=== PATIENT | male | born 1980 | race Two or more races ===

== ENCOUNTER 2021-08-15 16:29 | Inpatient (IN) | payer MEDICAID, OTHER ==
[~2021-08-15] VITALS: Ht 180.3 cm; Wt 101.6 kg
[2021-08-15] MEDS ORDERED: DILTIAZEM HCL 5MG/ML 5ML VIAL IV ONE ×2 (17:00→19:15)
[2021-08-15 17:12] LABS: BASOPHILS % 0.9 % (0.0-2.0); EOSINOPHILS % 4.7 % (0.0-5.0); HEMATOCRIT. 42.8 % (42.0-52.0); HEMOGLOBIN. 14.7 g/dL (14.0-18.0); LYMPHOCYTES % 40.5 % (20.0-50.0); MEAN CORPUSCULAR HEMOGLOBIN 27.9 pg (28.0-32.0); MEAN CORPUSCULAR VOLUME 81.1 fL (80.0-94.0); NEUTROPHILS % 45.9 % (40.0-76.0); PLATELET 273 x1000/uL (130-400); RED BLOOD CELL COUNT 5.28 mill/uL (4.7-6.1); RED CELL DISTRIBUTION WIDTH 14.3 % (11.6-14.6)
[2021-08-15 17:15] LABS: CHLORIDE 109 mEq/L (98-107)
[2021-08-15 17:18] LABS: PROTHROMBIN TIME 10.6 sec (9.6-11.0)
[2021-08-15 17:24] LABS: T4 FREE 0.99 ng/dL (0.76-1.46)
[2021-08-15] MEDS ORDERED: DILTIAZEM HCL 30MG TABLET PO ONE (17:45)
[2021-08-15 22:00] VITALS: BP 134/80
[2021-08-15] MEDS ORDERED: BUPR300T52 MT (22:54)
[2021-08-15] MEDS ORDERED: DIVA500T51 MT ×2 (22:54)
[2021-08-15] MEDS ORDERED: ZOLPIDEM TARTRATE 5MG TABLET PO PRN (23:00)
[2021-08-15] MEDS ORDERED: ACETAMINOPHEN 325MG TABLET PO PRN (23:00)
[2021-08-16] VITALS: BP 133/74
[2021-08-16] MEDS: APIXABAN 5 MG TABLET PO SCH ×3 (00:29→18:04)
[2021-08-16] MEDS: METOPROLOL TARTRATE 50MG TABLET PO SCH ×4 (00:31→21:26)
[2021-08-16 04:00] VITALS: BP 102/73
[2021-08-16 07:08] LABS: EOSINOPHILS % 5.7 % (0.0-5.0); HEMATOCRIT. 43.6 % (42.0-52.0); HEMOGLOBIN. 14.8 g/dL (14.0-18.0); LYMPHOCYTES % 49.1 % (20.0-50.0); MEAN CORPUSCULAR HEMOGLOBIN 27.6 pg (28.0-32.0); MEAN CORPUSCULAR VOLUME 81.2 fL (80.0-94.0); MEAN PLATELET VOLUME 8.9 fl (7.4-10.4); MONOCYTES % 9.9 % (2.0-8.0); NEUTROPHILS % 34.3 % (40.0-76.0); PLATELET 279 x1000/uL (130-400); RED BLOOD CELL COUNT 5.37 mill/uL (4.7-6.1); RED CELL DISTRIBUTION WIDTH 14.1 % (11.6-14.6)
[2021-08-16 07:11] LABS: CHLORIDE 110 mEq/L (98-107)
[2021-08-16 08:00] VITALS: BP 106/70
[2021-08-16] MEDS: DIVALPROEX SODIUM 250MG ER TABLET PO SCH (09:36)
[2021-08-16] MEDS: BUPROPION HCL 150MG SR TABLET PO SCH (09:36)
[2021-08-16] MEDS ORDERED: DIGOXIN 500MCG/2ML AMP IV SCH ×2 (10:45→18:00)
[2021-08-16 12:00] VITALS: BP 111/75
[2021-08-16] MEDS ORDERED: PNEUMOCOCCAL 23-VAL P-SAC VAC 0.5 ML IM ONE (12:00)
[2021-08-16 16:00] VITALS: BP 116/71
[2021-08-16 20:00] VITALS: BP 114/85
[2021-08-16 20:05] LABS: *AMPHETAMINES SCREEN URINE NEGATIVE (NEGATIVE); *BARBITURATES SCREEN URINE NEGATIVE (NEGATIVE); CANNABINOID URINE SCREEN NEGATIVE (NEGATIVE); PHENCYCLIDINE URINE SCREEN NEGATIVE (NEGATIVE)
[2021-08-16 20:06] LABS: *BENZODIAZEPINES SCREEN URINE NEGATIVE (NEGATIVE); *COCAINE SCREEN URINE NEGATIVE (NEGATIVE); METHADONE URINE SCREEN NEGATIVE (NEGATIVE); OPIATES URINE SCREEN NEGATIVE (NEGATIVE)
[2021-08-16] MEDS ORDERED: DIVALPROEX SODIUM 250MG ER TABLET PO SCH (21:00)
[2021-08-17] VITALS: BP 118/77
[2021-08-17 04:01] VITALS: BP 98/66
[2021-08-17 08:00] VITALS: BP 113/79
[2021-08-17] MEDS: BUPROPION HCL 150MG SR TABLET PO SCH (08:16)
[2021-08-17] MEDS: APIXABAN 5 MG TABLET PO SCH (08:17)
[2021-08-17] MEDS: METOPROLOL TARTRATE 50MG TABLET PO SCH (08:17)
[2021-08-17] MEDS: DIVALPROEX SODIUM 250MG ER TABLET PO SCH (08:17)
[2021-08-17 10:42] VITALS: BP 124/54
[2021-08-17 12:00] VITALS: BP 124/54
[2021-08-17] MEDS ORDERED: DIGOXIN 250MCG TABLET PO SCH (18:00)
== END 2021-08-17 13:20 | disposition home or self-care (01) | DRG 201 ==
LOC: ER 16:29 → EDBEDREQTM 18:08 → EDBEDREQ 18:08 → EDBEDREQTM 19:52 → EDBEDREQ 19:52 → ENRESERV 21:19 → 7EST 22:12
PROVIDERS: ADMIT Internal Medicine; ATTEND Internal Medicine
DX: I48.91 Unspecified atrial fibrillation (principal); E87.8 Other disorders of electrolyte and fluid balance, not elsewhere classified; E66.9 Obesity, unspecified; I10 Essential (primary) hypertension; F31.30 Bipolar disorder, current episode depressed, mild or moderate severity, unspecified; Z79.01 Long term (current) use of anticoagulants; Z79.899 Other long term (current) drug therapy; Z68.31 Body mass index [BMI] 31.0-31.9, adult
CPT/HCPCS: 36415; 71045; 80048; 80053; 80305; 83880; 84439; 84443; 84484; 85025; 90732; 93005; 93306; 99285; J1160; J3490